=== PATIENT | male | born 1960 | race Caucasian/White ===

== ENCOUNTER 2019-02-24 09:04 | Observation (INO) | payer OTHER ==
[2019-02-24] MEDS ORDERED: ONDANSETRON 4 MG/2 ML VIAL ONE (09:40)
[2019-02-24] MEDS ORDERED: MORPHINE 4 MG/ML SYR ONE (09:40)
[2019-02-24] MEDS ORDERED: NA CHLORIDE 0.9% 1,000 ML ONE (09:41)
[2019-02-24 10:02] LABS: Absolute Lymphocytes (CBC) 1.6 K/uL (0.7-4.9); Absolute Monocytes 1.3 K/uL (0.1-1.3); Absolute Neutrophil 11.5 K/uL (1.8-8.0); Basophils % 1.9 % (0-1.3); Eosinophils % 1.2 % (0-4.4); Hematocrit 52.1 % (39.6-49.0); Lymphocytes % 10.6 % (15.3-44.8); MPV 10.6 fL (7.6-11.3); RBC Red Blood Cell Count 5.11 M/uL (4.33-5.43)
[2019-02-24 10:07] LABS: BUN Blood Urea Nitrogen 11 mg/dL (7-18); Bicarbonate 27 mmol/L (21-32); Glucose Level 117 mg/dL (74-106); Potassium 3.9 mmol/L (3.5-5.1); Sodium Level 139 mmol/L (136-145)
[2019-02-24 10:33] LABS: Blood Morphology Comment NOT SEEN (NOT SEEN); Platelet Estimate ADEQ
--- NOTE | 2019-02-24 11:20 | RAD REPORT ---
EXAM DESCRIPTION: CTAbdomen Pelvis W Contrast - 02/24/2019 10:58 am CLINICAL HISTORY: Abdominal pain. ABD PAIN COMPARISON: No comparisons TECHNIQUE: Biphasic CT imaging of the abdomen and pelvis was performed with 100 ml non-ionic IV cont rast. All CT scans are performed using dose optimization technique as appropriate and may include automated exposure control or mA/KV adjustment according to patient size. FINDINGS: The lung bases are clear. The liver, spleen, pancreas, adrenal glands and kidneys are within normal limits. No bowel obstruction, free air, free fluid or abscess. 5 cm length of the sigmoid colon demonstrates significant wall thickening and pericolonic inflammatory changes. Several diverticula stem from the c olon in this region. The findings likely indicate moderate acute sigmoid diverticulitis. No peridiver ticular abscess. The appendix is normal. No evidence of significant lymphadenopathy. No suspicious bony findings. IMPRESSION: 5 cm length of sigmoid colon in the left lower quadrant demonstrates finding of moderate ly severe diverticulitis. Given that inflammatory neoplasia can have a similar appearance, advise fol low-up colonoscopy after appropriate therapy.
--- NOTE | 2019-02-24 11:38 | ER ---
Nurse's Notes [facility] Name: Ramone Strong Age: 58 yrs Sex: Male : 1960 Arrival Date: 02/24/2019 Time: 09:08 Bed 17 Private MD: Diagnosis: Diverticulitis of intestine, part unspecified, without perforation or abscess without bleeding Presentation: 02/24 09:18 Presenting complaint: Patient states: i started having this abdominal pain since hj yesterday more on top of my bladder area and on the L lower abd; but last Sunday i had diarrhea; denies fever and chills;. Transition of care: patient was not received from another setting of care. Onset of symptoms was February 24, 2019. Risk Assessment: Do you want to hurt yourself or someone else? Patient reports no desire to harm self or others. Initial Sepsis Screen: Does the patient meet any 2 criteria? No. Patient's initial sepsis screen is negative. Does the patient have a suspected source of infection? No. Patient's initial sepsis screen is negative. Care prior to arrival: None. 09:18 Method Of Arrival: Ambulatory 09:18 Acuity: MIGUELINA 3 hj Triage Assessment: 09:22 General: Appears in no apparent distress. uncomfortable, Behavior is calm, cooperative, hj appropriate for age. Pain: Complains of pain in abdomen. GI: Reports lower abdominal pain. Historical: - Allergies: 09:21 No Known Allergies; hj - Home Meds: 09:21 Lisinopril Oral [Active]; hj - PMHx: 09:21 Hypertension; hj - PSHx: 09:21 None; hj - Immunization history:: Adult Immunizations up to date. - Social history:: Smoking status: Patient/guardian denies using tobacco, Patient/guardian denies using alcohol. - Ebola Screening: : Patient negative for fever greater than or equal to 101.5 degrees Fahrenheit, and additional compatible Ebola Virus Disease symptoms Patient denies exposure to infectious person Patient denies travel to an Ebola-affected area in the 21 days before illness onset. Screenin:22 Abuse screen: Denies threats or abuse. Denies injuries from another. Nutritional hj screening: No deficits noted. Tuberculosis screening: No symptoms or risk factors identified. Fall Risk None identified. Assessment: 09:23 General: Appears in no apparent distress. uncomfortable, Behavior is calm, cooperative, hj appropriate for age. Pain: Complains of pain in abdomen. Neuro: Level of Consciousness is awake, alert, obeys commands, Oriented to person, place, time, situation, Appropriate for age. Cardiovascular: Capillary refill < 3 seconds Patient's skin is warm and dry. Respiratory: Airway is patent Respiratory effort is even, unlabored, Respiratory pattern is regular, symmetrical. GI: Bowel sounds present X 4 quads. Abd is soft and non tender. : No signs and/or symptoms were reported regarding the genitourinary system. EENT: No signs and/or symptoms were reported regarding the EENT system. Derm: No signs and/or symptoms reported regarding the dermatologic system. Musculoskeletal: No signs and/or symptoms reported regarding the musculoskeletal system. 09:48 Reassessment: Patient and/or family updated on plan of care and expected duration. Pain hj level reassessed. Patient is alert, oriented x 3, equal unlabored respirations, skin warm/dry/pink. awaiting results and POC;. 10:30 Reassessment: Patient and/or family updated on plan of care and expected duration. Pain hj level reassessed. Patient is alert, oriented x 3, equal unlabored respirations, skin warm/dry/pink. 11:30 Reassessment: Patient and/or family updated on plan of care and expected duration. Pain hj level reassessed. Patient is alert, oriented x 3, equal unlabored respirations, skin warm/dry/pink. awaiting room placement;. 12:18 Reassessment: Patient and/or family updated on plan of care and expected duration. Pain hj level reassessed. Patient is alert, oriented x 3, equal unlabored respirations, skin warm/dry/pink. IV antibiotics running;. 13:00 Reassessment: Patient and/or family updated on plan of care and expected duration. Pain hj level reassessed. Patient is alert, oriented x 3, equal unlabored respirations, skin warm/dry/pink. to room 404. 14:02 Reassessment: Patient and/or family updated on plan of care and expected duration. Pain hj level reassessed. Patient is alert, oriented x 3, equal unlabored respirations, skin warm/dry/pink. wheeled to 404;. Vital Signs: 09:22 BP 145 / 95; Pulse 82; Resp 18; Temp 97.9(TE); Pulse Ox 94% on R/A; Weight 112.49 kg; hj Height 5 ft. 8 in. (172.72 cm); Pain 6/10; 10:30 BP 140 / 86; Pulse 75; Resp 18; Pulse Ox 94% on R/A; hj 11:30 BP 135 / 85; Pulse 80; Resp 18; Pulse Ox 95% on R/A; hj 12:20 BP 148 / 90; Pulse 84; Resp 18; Pulse Ox 96% on R/A; hj 13:30 BP 145 / 89; Pulse 84; Resp 18; Pulse Ox 96% on R/A; hj 14:03 BP 120 / 64; Pulse 85; Resp 18; Pulse Ox 95% on R/A; hj 09:22 Body Mass Index 37.71 (112.49 kg, 172.72 cm) hj ED Course: 09:08 Patient arrived in ED. mr 09:13 [facility] kb 09:13 Reji Renner MD is Attending Physician. kb 09:18 Fercho Rahman RN is Primary Nurse. hj 09:20 Triage completed. hj 09:20 Initial lab(s) drawn, by wi, sent to lab. Inserted saline lock: 22 gauge in right hj antecubital area, using aseptic technique. Blood collected. 09:23 Arm band placed on right wrist. hj 09:24 Patient has correct armband on for positive identification. Placed in gown. Bed in low hj position. Call light in reach. Side rails up X 1. 10:12 Warm blanket given. mb4 10:[address] sj 10:55 CT completed. Patient tolerated procedure well. Patient moved back from CT. sj 10:59 CT Abd/Pelvis - W/Contrast In Process Unspecified. EDMS 11:38 Dudley Chand DO is Hospitalizing Provider. kb 14:03 No provider procedures requiring assistance completed. IV discontinued, intact. hj Administered Medications: 09:35 Drug: morphine 4 mg Route: IVP; Site: right antecubital; hj 10:31 Follow up: Response: No adverse reaction hj 09:35 Drug: Zofran 4 mg Route: IVP; Site: right antecubital; hj 10:31 Follow up: Response: No adverse reaction hj 09:35 Drug: NS 0.9% 1000 ml Route: IV; Rate: 1000 ml; Site: right antecubital; hj 12:05 Follow up: IV Status: Completed infusion; IV Intake: 1000ml hj 11:27 Drug: Flagyl 500 mg Volume: 100 ml; Route: IVPB; Rate: 200 ml/hr; Infused Over: 30 hj mins; Site: right antecubital; 12:04 Follow up: IV Status: Completed infusion; IV Intake: 100ml hj 12:04 Drug: Cipro 400 mg Volume: 200 ml; Route: IVPB; Infused Over: 60 mins; Site: right hj antecubital; 12:04 Follow up: IV Status: Completed infusion hj Intake: 12:04 IV: 100ml; Total: 100ml. hj 12:05 IV: 1000ml; Total: 1100ml. hj Outcome: 11:37 Discharge ordered by . kb 11:39 Decision to Hospitalize by Provider. kb 14:03 Admitted to Tele accompanied by tech, via wheelchair, room 404, with chart, Report hj called to SHEEBA Brantley 14:03 Condition: stable 14:04 Patient left the ED. Signatures: Dispatcher [employer] EDMS Shu Price, TONY WRIGHT-Jessi Garcia Susan sj Joaquin, Henry, RN RN hj Baxter, Mackenzie mb4
--- NOTE | 2019-02-24 11:38 | EDPHYS ---
Physician Documentation [facility] Name: Ramone Strong Age: 58 yrs Sex: Male : 1960 Arrival Date: 02/24/2019 Time: 09:08 Bed 17 Private MD: ED Physician Reji Renner HPI: 02/24 09:39 This 58 yrs old Male presents to ER via Ambulatory with complaints of kb Abdominal Pain. 09:39 The patient presents with abdominal pain in the lower abdomen. Onset: The kb symptoms/episode began/occurred yesterday. The symptoms do not radiate. Associated signs and symptoms: none. The symptoms are described as constant, waxing/waning. Modifying factors: The symptoms are alleviated by nothing, the symptoms are aggravated by nothing. Severity of pain: At its worst the pain was moderate in the emergency department the pain is unchanged. The patient has not experienced similar symptoms in the past. The patient has not recently seen a physician. Pt reports lower abd pain since yesterday morning. Had diarrhea the day before that (Sunday) only, but none since the pain started. Denies fever, n/v. Historical: - Allergies: 09:21 No Known Allergies; hj - Home Meds: 09:21 Lisinopril Oral [Active]; hj - PMHx: :21 Hypertension; hj - PSHx: 09:21 None; hj - Immunization history:: Adult Immunizations up to date. - Social history:: Smoking status: Patient/guardian denies using tobacco, Patient/guardian denies using alcohol. - Ebola Screening: : Patient negative for fever greater than or equal to 101.5 degrees Fahrenheit, and additional compatible Ebola Virus Disease symptoms Patient denies exposure to infectious person Patient denies travel to an Ebola-affected area in the 21 days before illness onset. ROS: 09:38 Constitutional: Negative for fever, chills, and weight loss, ENT: Negative for injury, kb pain, and discharge, Neck: Negative for injury, pain, and swelling, Cardiovascular: Negative for chest pain, palpitations, and edema, Respiratory: Negative for shortness of breath, cough, wheezing, and pleuritic chest pain, Back: Negative for injury and pain, : Negative for injury, bleeding, discharge, and swelling, MS/Extremity: Negative for injury and deformity, Skin: Negative for injury, rash, and discoloration, Neuro: Negative for headache, weakness, numbness, tingling, and seizure. 09:38 Abdomen/GI: Positive for abdominal pain, diarrhea, Negative for nausea and vomiting, constipation, abdominal cramps, abdominal distension. Exam: 09:38 Constitutional: This is a well developed, well nourished patient who is awake, alert, kb and in no acute distress. Head/Face: Normocephalic, atraumatic. ENT: Nares patent. No nasal discharge, no septal abnormalities noted. Tympanic membranes are normal and external auditory canals are clear. Oropharynx with no redness, swelling, or masses, exudates, or evidence of obstruction, uvula midline. Mucous membranes moist. Neck: Trachea midline, no thyromegaly or masses palpated, and no cervical lymphadenopathy. Supple, full range of motion without nuchal rigidity, or vertebral point tenderness. No Meningismus. Chest/axilla: Normal chest wall appearance and motion. Nontender with no deformity. No lesions are appreciated. Cardiovascular: Regular rate and rhythm with a normal S1 and S2. No gallops, murmurs, or rubs. Normal PMI, no JVD. No pulse deficits. Respiratory: Lungs have equal breath sounds bilaterally, clear to auscultation and percussion. No rales, rhonchi or wheezes noted. No increased work of breathing, no retractions or nasal flaring. Skin: Warm, dry with normal turgor. Normal color with no rashes, no lesions, and no evidence of cellulitis. MS/ Extremity: Pulses equal, no cyanosis. Neurovascular intact. Full, normal range of motion. Neuro: Awake and alert, GCS 15, oriented to person, place, time, and situation. Cranial nerves II-XII grossly intact. Motor strength 5/5 in all extremities. Sensory grossly intact. Cerebellar exam normal. Normal gait. 09:38 Abdomen/GI: Inspection: obese Bowel sounds: normal, in all quadrants, Palpation: moderate abdominal tenderness, in the right lower quadrant and left lower quadrant. Vital Signs: 09:22 BP 145 / 95; Pulse 82; Resp 18; Temp 97.9(TE); Pulse Ox 94% on R/A; Weight 112.49 kg; hj Height 5 ft. 8 in. (172.72 cm); Pain 6/10; 10:30 BP 140 / 86; Pulse 75; Resp 18; Pulse Ox 94% on R/A; hj 11:30 BP 135 / 85; Pulse 80; Resp 18; Pulse Ox 95% on R/A; hj 12:20 BP 148 / 90; Pulse 84; Resp 18; Pulse Ox 96% on R/A; hj 13:30 BP 145 / 89; Pulse 84; Resp 18; Pulse Ox 96% on R/A; hj 14:03 BP 120 / 64; Pulse 85; Resp 18; Pulse Ox 95% on R/A; hj 09:22 Body Mass Index 37.71 (112.49 kg, 172.72 cm) hj MDM: 09:17 Patient medically screened. [facility] 09:39 Data reviewed: vital signs, nurses notes. Data interpreted: Pulse oximetry: on room air kb is 94 %. Interpretation: normal. 11:36 Counseling: I had a detailed discussion with the patient and/or guardian regarding: the kb historical points, exam findings, and any diagnostic results supporting the discharge/admit diagnosis, lab results, radiology results, the need for further work-up and treatment in the hospital. Physician consultation: Dudley Chand DO was contacted at 11:36, regarding admission, to the medical/surgical unit. patient's condition, and will see patient in ED, shortly. 02/24 09:23 Order name: CBC with Diff; Complete Time: 10:37 kb 02/24 09:23 Order name: Basic Metabolic Panel; Complete Time: 10:08 kb 02/24 09:23 Order name: CT Abd/Pelvis - W/Contrast; Complete Time: 11:26 kb 02/24 10:33 Order name: Manual Differential; Complete Time: 10:37 EDMS 02/24 09:23 Order name: IV Saline Lock; Complete Time: 09:40 kb 02/24 09:23 Order name: Labs collected and sent; Complete Time: 09:40 kb Administered Medications: 09:35 Drug: morphine 4 mg Route: IVP; Site: right antecubital; hj 10:31 Follow up: Response: No adverse reaction hj 09:35 Drug: Zofran 4 mg Route: IVP; Site: right antecubital; hj 10:31 Follow up: Response: No adverse reaction hj 09:35 Drug: NS 0.9% 1000 ml Route: IV; Rate: 1000 ml; Site: right antecubital; hj 12:05 Follow up: IV Status: Completed infusion; IV Intake: 1000ml 11:27 Drug: Flagyl 500 mg Volume: 100 ml; Route: IVPB; Rate: 200 ml/hr; Infused Over: 30 hj mins; Site: right antecubital; 12:04 Follow up: IV Status: Completed infusion; IV Intake: 100ml 12:04 Drug: Cipro 400 mg Volume: 200 ml; Route: IVPB; Infused Over: 60 mins; Site: right hj antecubital; 12:04 Follow up: IV Status: Completed infusion Disposition: 02/25 06:58 Co-signature as Attending Physician, Reji Renner MD I agree with the assessment and leidy plan of care. Disposition: 02/24/19 11:39 Hospitalization ordered by Dudley Chand for Inpatient Admission. Preliminary diagnosis is Diverticulitis of intestine, part unspecified, without perforation or abscess without bleeding. - Bed requested for Telemetry/MedSurg (Inpatient). - Status is Inpatient Admission. hj - Condition is Stable. - Problem is new. - Symptoms are unchanged. UTI on Admission? No Signatures: Dispatcher [employer] EDMS Shu Price, [employer] TYPE SCREW MACHINE OPERATOR-Sera Estevez Corey, MD MD cha Joaquin, Henry, RN RN Corrections: (The following items were deleted from the chart) 02/24 11:38 11:37 02/24/2019 11:37 Discharged to Home. Impression: Diverticulitis of intestine, kb part unspecified, without perforation or abscess without bleeding. Condition is Stable. Forms are Medication Reconciliation Form, Thank You Letter, Antibiotic Education, Prescription Opioid Use. Follow up: Emergency Department; When: As needed; Reason: Worsening of condition. Follow up: Private Physician; When: 2 - 3 days; Reason: Recheck today's complaints, Continuance of care, Re-evaluation by your physician. kb 12:36 11:39 Hospitalization Ordered by Dudley Chand DO for Inpatient Admission. Preliminary bd diagnosis is Diverticulitis of intestine, part unspecified, without perforation or abscess without bleeding. Bed requested for Telemetry/MedSurg (Inpatient). Status is Inpatient Admission. Condition is Stable. Problem is new. Symptoms are unchanged. UTI on Admission? No. kb 14:04 12:36 02/24/2019 11:39 Hospitalization Ordered by Dudley Chand DO for Inpatient hj Admission. Preliminary diagnosis is Diverticulitis of intestine, part unspecified, without perforation or abscess without bleeding. Bed requested for Telemetry/MedSurg (Inpatient). Status is Inpatient Admission. Condition is Stable. Problem is new. Symptoms are unchanged. UTI on Admission? No. bd
[2019-02-24] MEDS ORDERED: CIPROFLOXACIN 400mg IV 400 MG/200 ML BAG IV ONE (11:42)
[2019-02-24] MEDS ORDERED: METRONIDAZOLE 500mg IVPB 500 MG/100 ML BAG IV ONE (11:42)
--- NOTE | 2019-02-24 12:03 | P.HP ---
Certification for Inpatient Patient admitted to: Observation With expected LOS: <2 Midnights Patient will require the following post-hospital care: None Practitioner: I am a practitioner with admitting privileges, knowledge of patient current condition, hospital course, and medical plan of care. Services: Services provided to patient in accordance with Admission requirements found in Title 42 Section 412.3 of the Code of Federal Regulations Patient History Date of Service: 02/24/19 Primary Care Provider: Dr. Chand Reason for admission: Abdominal pain History of Present Illness: 58-year-old male presented to the emergency room with left lower quadrant abdominal pain. Pain started yesterday morning. It was associated with some diarrhea. He denied any fever, chills. The pain did not radiate. Pain was mainly to the left lower quadrant. He did not have a bowel movement this morning. Pain did not improve. He came to the ER for further evaluation. In the ER patient evaluated. White count 14.9. CT scan showed moderate to severe diverticulitis to the sigmoid region. Patient was admitted for further evaluation and treatment. When I saw the patient ER, pain had improved with pain medication. Patient still with mild bloating. No bowel movement this morning yet. Patient has not had a colonoscopy in the past. No history of diverticulitis. Only history of hypertension. Home medications list reviewed: Yes - Past Medical/Surgical History Diabetic: No -: Hypertension -: Sinus surgery Psychosocial/ Personal History: Patient works and lives at home. - Family History Mother -: Hypertension - Social History Smoking Status: Never smoker Alcohol use: Yes CD- Drugs: No Caffeine use: Yes Place of Residence: Home Review of Systems General: As per HPI Eyes: Unremarkable ENT: Unremarkable Respiratory: Unremarkable Cardiovascular: Unremarkable Gastrointestinal: Abdominal Pain, Diarrhea, As per HPI Genitourinary: Unremarkable Musculoskeletal: Unremarkable Integumentary: Unremarkable Neurological: Unremarkable Lymphatics: Unremarkable Physical Examination - Physical Exam General: Alert, In no apparent distress, Oriented x3, Cooperative HEENT: Atraumatic, Normocephalic, PERRLA, Mucous membr. moist/pink Neck: Supple, No Thyromegaly Respiratory: Clear to auscultation bilaterally, Normal air movement Cardiovascular: Normal pulses, Regular rate/rhythm Gastrointestinal: Normal bowel sounds, Soft and benign, No masses, No rebound, No guarding, Distended (Minimal distention), Tenderness (Slight pain to the left lower quadrant) Musculoskeletal: No erythema, No tenderness, No warmth Integumentary: No tenderness/swelling, No erythema, No warmth, No cyanosis Neurological: Normal speech, Normal strength at 5/5 x4 extr, Normal tone, Normal affect - Studies Laboratory Data (last 24 hrs) 02/24/19 09:35: Sodium 139, Potassium 3.9, BUN 11, Creatinine 0.77, Glucose 117 H 02/24/19 09:35: WBC 14.9 H, Hgb 18.0 H, Hct 52.1 H, Plt Count 219 Assessment and Plan - Plan Impression: Left lower quadrant abdominal pain secondary to moderate to severe diverticulitis Hypertension Plan: Left lower quadrant abdominal pain secondary to moderate to severe diverticulitis: Patient will be admitted for observation. Will start Cipro and Flagyl. Will obtain blood cultures. Will monitor and recheck lab tomorrow. Will provide medication for pain. Will start with a full liquid diet and advance to a GI soft. Patient has not had a colonoscopy in the past. If significantly improved then will plan for discharge in the next 24 hr. Patient will need colonoscopy in 6-8 weeks. Patient will require antibiotic therapy at discharge. Will teach on diverticulitis. I will turn the service over to Dr. Burnette tomorrow. I will go over the plan of care with her. Hypertension: Will continue with his medication lisinopril 40 mg daily. Discharge Plan: Home Plan to discharge in: 24 Hours - Advance Directives Does patient have a Living Will: No Does patient have a Durable POA for Healthcare: No - Code Status/Comfort Care Code Status Assessed: Yes (Patient is full code.) Time Spent Managing Pts Care (In Minutes): 55
[2019-02-24] MEDS ORDERED: ONDANSETRON 4 MG/2 ML VIAL IV PRN (13:59)
[2019-02-24] MEDS ORDERED: TRAMADOL HCL 50 MG TAB PO PRN (13:59)
[2019-02-24] MEDS ORDERED: HYDROCODONE/APAP 7.5/325 MG TAB PO PRN (13:59)
[2019-02-24] MEDS: MORPHINE 2 MG/ML SYR IV PRN ×2 (14:29→21:36)
[2019-02-24] MEDS: NA CHLORIDE 0.9% 1,000 ML IV SCH ×2 (14:30→23:59)
[2019-02-24] MEDS: METRONIDAZOLE 500mg IVPB 500 MG/100 ML BAG IV SCH (16:26)
[2019-02-24] MEDS ORDERED: POTASSIUM CL SA 10 MEQ TAB PO ONE (18:59)
[2019-02-24] MEDS: FAMOTIDINE 20 MG TAB PO SCH (21:35)
[2019-02-24] MEDS: CIPROFLOXACIN 400mg IV 400 MG/200 ML BAG IV SCH (21:38)
[2019-02-24] MEDS: LISINOPRIL 20 MG TAB PO SCH (21:38)
[2019-02-25] MEDS: METRONIDAZOLE 500mg IVPB 500 MG/100 ML BAG IV SCH ×2 (01:40→08:30)
[2019-02-25] MEDS: NA CHLORIDE 0.9% 1,000 ML IV SCH (02:30)
[2019-02-25] MEDS: MORPHINE 2 MG/ML SYR IV PRN (04:01)
[2019-02-25] MEDS: ACETAMINOPHEN 500 MG TAB PO PRN ×2 (04:02→11:18)
[2019-02-25 05:50] LABS: Magnesium 2.3 mg/dL (1.8-2.4); Potassium 4.4 mmol/L (3.5-5.1)
[2019-02-25 05:52] LABS: Absolute Lymphocytes (CBC) 1.8 K/uL (0.7-4.9); Absolute Monocytes 1.2 K/uL (0.1-1.3); Absolute Neutrophil 9.3 K/uL (1.8-8.0); Basophils % 0.6 % (0-1.3); Eosinophils % 2.2 % (0-4.4); Hematocrit 49.9 % (39.6-49.0); MPV 10.5 fL (7.6-11.3); Monocytes % 9.7 % (3.3-12.3); RBC Red Blood Cell Count 4.82 M/uL (4.33-5.43)
[2019-02-25 06:22] LABS: Urine Appearance CLEAR; Urine Bilirubin NEGATIVE (NEG); Urine Blood NEGATIVE (NEG); Urine Color YELLOW; Urine Glucose NEGATIVE (NEG); Urine Protein NEGATIVE (NEG); Urine pH 5.5 (5.0-7.0)
[2019-02-25 06:23] LABS: Urine Microscopic Reflex NO UMIC
[2019-02-25] MEDS: CIPROFLOXACIN 400mg IV 400 MG/200 ML BAG IV SCH (08:29)
[2019-02-25] MEDS: FAMOTIDINE 20 MG TAB PO SCH (08:29)
[2019-02-25] MEDS: LISINOPRIL 20 MG TAB PO SCH (08:29)
[2019-02-25] MEDS ORDERED: ENOXAPARIN 40 MG/0.4 ML SQ SCH (09:00)
--- NOTE | 2019-02-25 15:06 | P.SSS ---
Patient History Date of Service: 02/25/19 Primary Care Provider: Dr. Chand Reason for admission: Abdominal pain History of Present Illness: 58-year-old male with significant past medical history who is admitted to the hospital for diverticulitis. Please refer to HPI for further history of present illness. Allergies No Known Allergies Allergy (Verified 02/24/19 13:35) Home Medications: Lisinopril [Zestril] 40 mg PO DAILY 02/24/19 Ciprofloxacin HCl [Cipro 500 MG Tablet] 500 mg PO DAILY #14 tab 02/25/19 Famotidine [Pepcid*] 20 mg PO BID #60 tab 02/25/19 metroNIDAZOLE [Flagyl] 500 mg PO Q6H #56 tablet 02/25/19 - Past Medical/Surgical History Has patient received pneumonia vaccine in the past: No Diabetic: No -: Hypertension -: Sinus surgery Psychosocial/ Personal History: Patient works and lives at home. - Family History Mother -: Hypertension - Social History Smoking Status: Never smoker Alcohol use: Yes CD- Drugs: No Caffeine use: Yes Place of Residence: Home Review of Systems 10-point ROS is otherwise unremarkable Physical Examination - Vital Signs Temperature: 97.4 F Blood Pressure: 106/76 Pulse: 74 Respirations: 18 Pulse Ox (%): 91 - Physical Exam General: Alert, In no apparent distress HEENT: Atraumatic, PERRLA, Mucous membr. moist/pink, EOMI, Sclerae nonicteric Neck: Supple, 2+ carotid pulse no bruit, No LAD, Without JVD or thyroid abnormality Respiratory: Clear to auscultation bilaterally, Normal air movement Cardiovascular: Regular rate/rhythm, Normal S1 S2 Gastrointestinal: Normal bowel sounds, No tenderness Musculoskeletal: No tenderness Integumentary: No rashes Neurological: Normal gait, Normal speech, Normal strength at 5/5 x4 extr, Normal tone, Normal affect Lymphatics: No axilla or inguinal lymphadenopathy - Diagnosis (Problem(s)) (1) Diverticulitis Current Visit: Yes Status: Resolved Treatment Summary: Patient oral remained stable while here in the hospital Patient initially was admitted to the hospital for abdominal pain was found to have sigmoid colon diverticulitis was started on Cipro and Flagyl. Patient did well overall in next 24 hr and was switched over to a GI soft diet which she tolerated well and thus was discharged home under stable condition. Patient was given prescription for Cipro and Flagyl to be taken for total next 14 days. Patient was also asked to follow up with GI in about 6 weeks for followup colonoscopy. Patient must understanding and thus was discharged home under stable condition - Disposition Disposition: ROUTINE DISCHARGE Condition: GOOD Patient Discharge Instructions: Please f.u with PCP and GI in 1 to 2 week post discharge. new medication. Ciprofloxacin 500mg daily. Flagyl 500mg q8h daily. Pepcid 20mg BID daily Diet: Regular Activity: Ad belkys
== END 2019-02-25 15:06 | disposition home or self-care (01) ==
LOC: ER 09:04 → ERHOLD 11:48 → 4TH 13:52
PROVIDERS: ADMIT Family Medicine; ATTEND Family Medicine
DX: K57.32 Diverticulitis of large intestine without perforation or abscess without bleeding (principal); I10 Essential (primary) hypertension
CPT/HCPCS: 36415; 74177; 80048; 81003; 83735; 84145; 85025; 87040; 96361; 96365; 96367; 96375; 99285; G0378; J0744; J1650; J2270; J2405; J7030; Q9967